=== PATIENT | female | born 1945 | race Caucasian/White ===

== ENCOUNTER → 2017-04-30 | Outpatient (CLI) | payer MEDICARE, OTHER ==
[~2017-04-30] MED LIST: ADVAIR 250-501 EAC1 IH; ALBUTEROL17 GM INH; ASPIRIN81 M1 PO; ASPIRIN81 M2 PO; CALCIUM 5001 TAB PO; CALCIUM500 MG PO; COREG3.125 MG PO; DULERA 100 MCG/13 GM IH; EFFIENT10 MG PO; GEMFIBROZIL1 GM PO; LOPID600 MG PO; PRILOSEC PO; PRO AIR; SIMVASTATIN40 MG PO; SINGULAIR PO; SPIRIVA18 MCG INH; VITAMIN D1000 UNI1 PO; VITAMIN D250000 UNIT PO; ZYRTEC10 M2 PO
--- NOTE | ~2017-04-30 | CT137 ---
[facility] A Service of [facility] RADIOLOGY TEXT RESULTS PATIENT: CÉSAR THOMAS LOCATION: [facility] : 45 UNIT #: [id number] AGE: [address]: Kirk Man MD SEX: F ORDER DR: [id number] [place], [place] [address] [id number] O MR#: [id number] [facility] #: [id number] NAME: CÉSAR THOMAS : 1945 SEX: F STUDY DATE/TIME: 04/30/2017 15:23 UNIT: [facility] ROOM: STUDY DESCRIPTION: CT Lung Screening annual Attending Physician: Kirk Man M.D. Referring Physician: Kirk Man M.D. Ordering Physician: Kirk Man M.D. Primary Care Physician: Kirk Man M.D. MEDICAL IMAGING REPORT This report is preliminary unless electronic signature is present EXAM CT chest without contrast low-dose lung cancer screening protocol DATE: 04/30/2017 HISTORY 71-year-old female with a 51 pack-year smoking history. Yearly lung cancer screening followup. No current complaints. COMPARISON CT chest without contrast low-dose lung cancer screening protocol 03/09/2016. PROCEDURE 2 mL noncontrast axial images through the chest without contrast per low-dose screening protocol. CT DI volume in mGy 3.30. Dose length product mGy-cm 123.60. This CT exam was performed with one or more of the following radiation dose reduction techniques: automatic exposure control, adjustment of mA and/or kV according to patient size, and iterative reconstruction. FINDINGS Moderate emphysematous changes are present. Mild subpleural reticular interstitial fibrotic changes from the right upper lobe, similar to prior exam. No suspicious pulmonary nodules are identified. No acute lung consolidations are seen. No abnormal bronchial wall thickening or mucous plugging. Benign calcified lymph nodes within the mediastinum and right hilum consistent with old granulomatous disease. Dense coronary artery calcifications. Benign coarse calcifications in the left breast unchanged. [facility] A Service of [facility] RADIOLOGY TEXT RESULTS PATIENT: CÉSAR THOMAS LOCATION: [facility] : 45 UNIT #: [id number] AGE: [address]: Kirk Man MD SEX: F ORDER DR: Fusiform aneurysmal dilation of the distal descending thoracic aorta measures 3.9 cm, little change from 3.8 cm on 03/09/2016. 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 Remainder of included upper abdominal organs have a normal noncontrast appearance. IMPRESSION 1. Lung-RADS category 1. Negative examination. Annual lung cancer screening with low-dose CT chest recommended per Lung-RADS protocol. 2. No suspicious pulmonary nodules or pathologic adenopathy. 3. Moderate emphysema. 4. 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 5. Dense coronary artery calcifications. Correlate with cardiac history. Dictated by... Azra Hoffman M.D. THIS IS AN ELECTRONICALLY VERIFIED REPORT Azra Hoffman M.D. at 05/01/2017 8:54 AM BINTA/amber TD: 05/01/2017 00:22 JOB #: [id number] MEDICAL IMAGING REPORT Page 1 of 1 COPY
== END | disposition home or self-care (01) ==
LOC: CCAT 14:57
DX: F17.210 Nicotine dependence, cigarettes, uncomplicated (principal)
CPT/HCPCS: G0297